=== PATIENT | female | born 1965 | race Caucasian/White ===

== ENCOUNTER 2016-08-19 09:45 | Emergency (ER) | payer BC ==
--- NOTE | 2016-08-26 18:56 | ER ---
ADMIT: 08/19/2016 RM/LOC: ER [facility] MR#: [id number] [address] [id number] BHAVESH NAZARIO [address] [place] [address] Emergency Room Report SEX: F AGE: 51 : 1965 DATE: 08/19/2016 ADDENDUM: CHIEF COMPLAINT: Swollen distal portion of her thigh with erythema. This developed yesterday, she said it is just progressively spreading. CLINICAL IMPRESSION: Cellulitis to the right distal thigh. I am sending her home on Bactrim and Keflex and having her followup with her PCP if worsen. CHITO Hernandez / Juan Delvalle MD / lolis JOB #: [id number] CC: Juan Delvalle MD, Attending Physician Ashley Moran MD, Family Physician
== END 2016-08-19 11:25 | disposition home or self-care (01) ==
LOC: ER 09:45
DX: L03.115 Cellulitis of right lower limb (principal); F17.210 Nicotine dependence, cigarettes, uncomplicated; Z79.899 Other long term (current) drug therapy; Z98.890 Other specified postprocedural states